=== PATIENT | female | born 1995 | race Two or more races ===

== ENCOUNTER → 2016-07-20 | Outpatient (CLI) | payer MEDICAID ==
[2016-07-20 12:29] LABS: Basophils # (auto) 0 uL; Basophils % (auto) 0.3 % (0.0-2.0); Eosinophils # (auto) 0.1 uL; Eosinophils % (auto) 1.3 % (0.0-7.0); Hematocrit 41.6 % (36.0-46.0); Hemoglobin 13.6 g/dL (12.2-16.2); Lymphocytes # (auto) 1.7 uL; Lymphocytes % (auto) 22.3 % (10.0-50.0); Mean Corpuscular Hemoglobin 29.1 pg (28.0-32.0); Mean Corpuscular Hgb Conc. 32.7 g/dL (32.0-36.0); Mean Corpuscular Volume 89.1 fL (80.0-100.0); Mean Platelet Volume 7.7 fL (7.4-10.4); Monocytes # (auto) 0.4 uL; Monocytes % (auto) 4.7 % (0.0-12.0); Neutrophils # (auto) 5.4 uL; Neutrophils % (auto) 71.4 % (37.0-80.0); Platelet Count (auto) 296 10^3/uL (140-450); Red Cell Distribution Width 12.3 % (11.6-16.0); White Blood Cell 7.6 10^3/uL (4.4-10.8)
== END | disposition home or self-care (01) ==
LOC: LAB 10:54
PROVIDERS: ATTEND Obstetrics & Gynecology
DX: Z34.00 Encounter for supervision of normal first pregnancy, unspecified trimester (principal)
CPT/HCPCS: 36415; 84702; 85025; 86703; 86762; 86850; 86900; 86901; 87086; 87340; G0434

== ENCOUNTER 2017-01-11 10:00 | Observation (INO) | payer MEDICAID ==
[2017-01-11 10:54] LABS: Basophils # (auto) 0 uL; Basophils % (auto) 0.2 % (0.0-2.0); CONDITION Y; Eosinophils # (auto) 0.1 uL; Eosinophils % (auto) 0.8 % (0.0-7.0); Hematocrit 33.1 % (36.0-46.0); Hemoglobin 11.1 g/dL (12.2-16.2); Lymphocytes # (auto) 1.6 uL; Lymphocytes % (auto) 21.6 % (10.0-50.0); Mean Corpuscular Hemoglobin 28.2 pg (28.0-32.0); Mean Corpuscular Hgb Conc. 33.5 g/dL (32.0-36.0); Mean Corpuscular Volume 84.1 fL (80.0-100.0); Mean Platelet Volume 7.3 fL (7.4-10.4); Monocytes # (auto) 0.4 uL; Monocytes % (auto) 5.8 % (0.0-12.0); Neutrophils # (auto) 5.3 uL; Neutrophils % (auto) 71.6 % (37.0-80.0); Platelet Count (auto) 274 10^3/uL (140-450); Red Cell Distribution Width 14.3 % (11.6-16.0); White Blood Cell 7.4 10^3/uL (4.4-10.8)
[2017-01-11 10:59] LABS: Urine Bilirubin Negative (Negative); Urine Blood Negative /uL (Negative); Urine Color Yellow (Yellow); Urine Glucose Normal (Normal); Urine Ketone Negative (Negative); Urine Mucus FEW (None Seen); Urine Nitrite Negative (Negative); Urine RBC <1 /hpf (0 - 4); Urine Squamous Epithelial Cell FEW /hpf (<5); Urine Urobilinogen Normal (Negative); Urine pH 6.5 (5.0-8.0)
[2017-01-11 11:07] LABS: INR 0.92 (0.9-1.15); Partial Thromboplastin Time 27.6 sec (22.64-33.71)
[2017-01-11 11:15] LABS: Albumin 2.5 g/dL (3.4-5.0); BUN/Creatinine Ratio 21.6; Bilirubin, Total 0.2 mg/dL (0.2-1.0); Calcium 8.6 mg/dL (8.5-10.1); Total Protein 6.7 g/dL (6.4-8.2); Uric Acid 5.2 mg/dL (2.6-6.0)
[2017-01-11] MEDS ORDERED: BETAMETHASONE ACET (6MG/ML) 5ML VIAL ONE (11:37)
[2017-01-11] MEDS ORDERED: BETAMETHASONE ACET (6MG/ML) 5ML VIAL IM ONE (11:45)
== END 2017-01-11 12:10 | disposition home or self-care (01) | DRG 566 ==
LOC: LDRP 10:00
PROVIDERS: ADMIT Obstetrics & Gynecology; ATTEND Obstetrics & Gynecology
DX: O13.3 Gestational [pregnancy-induced] hypertension without significant proteinuria, third trimester (principal); Z3A.36 36 weeks gestation of pregnancy
CPT/HCPCS: 36415; 59025; 76818; 80053; 81001; 81002; 84550; 85025; 85610; 85730; G0378; J0702

== ENCOUNTER 2017-01-12 12:05 | Observation (INO) | payer MEDICAID ==
[~2017-01-12] VITALS: Ht 162.6 cm; Wt 89.8 kg
[2017-01-12] MEDS ORDERED: BETAMETHASONE ACET (6MG/ML) 5ML VIAL IM ONE (12:45)
[2017-01-12] MEDS ORDERED: LACTATED RINGER'S 1,000 ML IV ONE (13:18)
[2017-01-12] MEDS ORDERED: TERBUTALINE SULFATE 1 MG/ML 1ML VIAL SC ONE (13:30)
== END 2017-01-12 15:00 | disposition home or self-care (01) | DRG 566 ==
LOC: LDRP 12:05
PROVIDERS: ADMIT Specialist; ATTEND Specialist
DX: O13.3 Gestational [pregnancy-induced] hypertension without significant proteinuria, third trimester (principal); Z3A.36 36 weeks gestation of pregnancy
CPT/HCPCS: 59025; 81002; 96361; 96366; 96372; G0378; J3105; 96360

== ENCOUNTER 2017-01-14 10:40 | Observation (INO) | payer MEDICAID ==
[2017-01-14 11:41] LABS: Basophils # (auto) 0 uL; Basophils % (auto) 0.3 % (0.0-2.0); CONDITION Y; Eosinophils # (auto) 0 uL; Eosinophils % (auto) 0.5 % (0.0-7.0); Hematocrit 30.8 % (36.0-46.0); Hemoglobin 10.3 g/dL (12.2-16.2); Lymphocytes # (auto) 1.8 uL; Mean Corpuscular Hemoglobin 28.2 pg (28.0-32.0); Mean Corpuscular Hgb Conc. 33.4 g/dL (32.0-36.0); Mean Corpuscular Volume 84.5 fL (80.0-100.0); Mean Platelet Volume 7.2 fL (7.4-10.4); Monocytes # (auto) 0.8 uL; Monocytes % (auto) 8.6 % (0.0-12.0); Neutrophils # (auto) 6.1 uL; Neutrophils % (auto) 69.6 % (37.0-80.0); Platelet Count (auto) 298 10^3/uL (140-450); Red Cell Distribution Width 14.1 % (11.6-16.0); White Blood Cell 8.8 10^3/uL (4.4-10.8)
[2017-01-14 11:55] LABS: INR 0.91 (0.9-1.15); Partial Thromboplastin Time 25.4 sec (22.64-33.71); Prothrombin Time 9.9 sec (9.37-12.3)
[2017-01-14 11:59] LABS: Potassium 3.7 mmol/L (3.5-5.1)
[2017-01-14 12:11] LABS: Albumin 2.5 g/dL (3.4-5.0); BUN/Creatinine Ratio 22.6
[2017-01-14 12:13] LABS: Bilirubin, Total 0.2 mg/dL (0.2-1.0); Total Protein 6.2 g/dL (6.4-8.2)
[2017-01-17 15:31] LABS: Uric Acid 4.9 mg/dL (2.6-6.0)
== END 2017-01-14 13:15 | disposition home or self-care (01) | DRG 566 ==
LOC: LDRP 10:40
PROVIDERS: ADMIT Specialist; ATTEND Specialist
DX: O13.3 Gestational [pregnancy-induced] hypertension without significant proteinuria, third trimester (principal); Z3A.36 36 weeks gestation of pregnancy
CPT/HCPCS: 36415; 59025; 76818; 80053; 81002; 84156; 84550; 85025; 85610; 85730; G0378

== ENCOUNTER 2017-01-16 09:30 | Observation (INO) | payer MEDICAID ==
[2017-01-16 11:22] LABS: Basophils # (auto) 0 uL; Basophils % (auto) 0.1 % (0.0-2.0); CONDITION Y; Eosinophils # (auto) 0.1 uL; Eosinophils % (auto) 0.9 % (0.0-7.0); Hematocrit 32.7 % (36.0-46.0); Lymphocytes # (auto) 1.6 uL; Lymphocytes % (auto) 23.9 % (10.0-50.0); Mean Corpuscular Hemoglobin 28.1 pg (28.0-32.0); Mean Corpuscular Hgb Conc. 33.7 g/dL (32.0-36.0); Mean Corpuscular Volume 83.6 fL (80.0-100.0); Mean Platelet Volume 7.4 fL (7.4-10.4); Monocytes # (auto) 0.3 uL; Monocytes % (auto) 4.7 % (0.0-12.0); Neutrophils # (auto) 4.8 uL; Neutrophils % (auto) 70.4 % (37.0-80.0); Platelet Count (auto) 279 10^3/uL (140-450); Red Cell Distribution Width 13.9 % (11.6-16.0); White Blood Cell 6.8 10^3/uL (4.4-10.8)
[2017-01-16 11:30] LABS: INR 0.92 (0.9-1.15); Partial Thromboplastin Time 26.7 sec (22.64-33.71)
[2017-01-16 11:35] LABS: Albumin 2.4 g/dL (3.4-5.0); Calcium 8.5 mg/dL (8.5-10.1); Potassium 3.6 mmol/L (3.5-5.1)
[2017-01-16 11:38] LABS: BUN/Creatinine Ratio 24.1
[2017-01-16 11:40] LABS: Bilirubin, Total 0.2 mg/dL (0.2-1.0); Total Protein 6.2 g/dL (6.4-8.2)
[2017-01-16 11:51] LABS: Urine Bilirubin Negative (Negative); Urine Blood Negative /uL (Negative); Urine Color Yellow (Yellow); Urine Glucose Normal (Normal); Urine Ketone Negative (Negative); Urine Nitrite Negative (Negative); Urine RBC 3 /hpf (0 - 4); Urine Squamous Epithelial Cell MOD /hpf (<5); Urine Urobilinogen Normal (Negative); Urine pH 7.5 (5.0-8.0)
[2017-01-17 15:42] LABS: Uric Acid 4.8 mg/dL (2.6-6.0)
== END 2017-01-16 13:00 | disposition home or self-care (01) | DRG 566 ==
LOC: LDRP 09:30
PROVIDERS: ADMIT Specialist; ATTEND Specialist
DX: O13.3 Gestational [pregnancy-induced] hypertension without significant proteinuria, third trimester (principal); Z3A.37 37 weeks gestation of pregnancy
CPT/HCPCS: 36415; 59025; 76818; 80053; 81001; 81002; 84550; 85025; 85610; 85730; G0378

== ENCOUNTER 2017-01-20 15:05 | Observation (INO) | payer MEDICAID ==
[2017-01-20 18:08] LABS: Basophils # (auto) 0 uL; CONDITION Y; Eosinophils # (auto) 0.1 uL; Eosinophils % (auto) 0.8 % (0.0-7.0); Hematocrit 32.5 % (36.0-46.0); Lymphocytes # (auto) 1.8 uL; Lymphocytes % (auto) 23.8 % (10.0-50.0); Mean Corpuscular Hgb Conc. 33.9 g/dL (32.0-36.0); Mean Corpuscular Volume 82.6 fL (80.0-100.0); Mean Platelet Volume 7.8 fL (7.4-10.4); Monocytes # (auto) 0.5 uL; Monocytes % (auto) 6.8 % (0.0-12.0); Neutrophils # (auto) 5.2 uL; Neutrophils % (auto) 68.6 % (37.0-80.0); Platelet Count (auto) 278 10^3/uL (140-450); Red Cell Distribution Width 14.4 % (11.6-16.0); White Blood Cell 7.6 10^3/uL (4.4-10.8)
[2017-01-20 18:11] LABS: Urine Bilirubin Negative (Negative); Urine Blood Negative /uL (Negative); Urine Ca Oxalate Crystal FEW (None Seen); Urine Color Yellow (Yellow); Urine Glucose Normal (Normal); Urine Ketone Negative (Negative); Urine Mucus FEW (None Seen); Urine Nitrite Negative (Negative); Urine RBC 1 /hpf (0 - 4); Urine Sperm PRESENT /hpf (None Seen); Urine Squamous Epithelial Cell MOD /hpf (<5); Urine Urobilinogen Normal (Negative)
[2017-01-20 18:22] LABS: INR 0.92 (0.9-1.15); Partial Thromboplastin Time 27.4 sec (22.64-33.71)
[2017-01-20 18:29] LABS: Albumin 2.5 g/dL (3.4-5.0); Bilirubin, Total 0.2 mg/dL (0.2-1.0); Calcium 8.7 mg/dL (8.5-10.1); Total Protein 6.6 g/dL (6.4-8.2); Uric Acid 5.4 mg/dL (2.6-6.0)
== END 2017-01-20 18:50 | disposition home or self-care (01) | DRG 566 ==
LOC: LDRP 15:05
PROVIDERS: ADMIT Obstetrics & Gynecology; ATTEND Obstetrics & Gynecology
DX: O26.893 Other specified pregnancy related conditions, third trimester (principal); Z3A.37 37 weeks gestation of pregnancy
CPT/HCPCS: 36415; 59025; 76818; 80053; 81001; 81002; 84550; 85025; 85610; 85730; G0378

== ENCOUNTER 2017-01-23 11:30 | Inpatient (IN) | payer MEDICAID ==
[~2017-01-23] VITALS: Ht 1 cm; Wt 0.5 kg
[2017-01-23] MEDS ORDERED: NALBUPHINE HCL 10 MG/1ml INJECTION IV PRN (12:45)
[2017-01-23] MEDS ORDERED: LACTATED RINGER'S 1,000 ML IV SCH (12:45)
[2017-01-23] MEDS ORDERED: CARBOPROST TROMETHAMINE 250 MCG/1ML VIAL IM PRN (12:45)
[2017-01-23] MEDS ORDERED: DERMOPLAST 60ML BOTTLE TOP PRN (12:45)
[2017-01-23] MEDS ORDERED: LACT. RINGERS/OXYTOCIN 20UNITS 1,000 ML IV SCH ×2 (12:45→16:51)
[2017-01-23] MEDS ORDERED: PHISODERM TOP SOLN 240ML BTL TOP PRN (12:45)
[2017-01-23] MEDS ORDERED: LIDOCAINE 2%HCL (LOCAL ANESTH.) INJ 20ML MDV IJ ONE (12:45)
[2017-01-23] MEDS ORDERED: METHYLERGONOVINE MALEATE 0.2 MG/ML AMP IM PRN (12:45)
[2017-01-23] MEDS ORDERED: WITCH HAZEL-GLYCERIN PAD TOP PRN (12:45)
[2017-01-23 13:21] LABS: Urine Bilirubin Negative (Negative); Urine Blood Negative /uL (Negative); Urine Color Yellow (Yellow); Urine Glucose Normal (Normal); Urine Ketone Negative (Negative); Urine Mucus FEW (None Seen); Urine Nitrite Negative (Negative); Urine RBC 2 /hpf (0 - 4); Urine Squamous Epithelial Cell FEW /hpf (<5); Urine Urobilinogen Normal (Negative)
[2017-01-23 13:24] LABS: Basophils # (auto) 0 uL; Basophils % (auto) 0.2 % (0.0-2.0); CONDITION Y; Eosinophils # (auto) 0 uL; Eosinophils % (auto) 0.4 % (0.0-7.0); Hematocrit 33.9 % (36.0-46.0); Hemoglobin 11.4 g/dL (12.2-16.2); Lymphocytes # (auto) 1.6 uL; Lymphocytes % (auto) 19.1 % (10.0-50.0); Mean Corpuscular Hemoglobin 27.9 pg (28.0-32.0); Mean Corpuscular Hgb Conc. 33.8 g/dL (32.0-36.0); Mean Corpuscular Volume 82.5 fL (80.0-100.0); Mean Platelet Volume 7.7 fL (7.4-10.4); Monocytes # (auto) 0.4 uL; Monocytes % (auto) 5.2 % (0.0-12.0); Neutrophils # (auto) 6.2 uL; Neutrophils % (auto) 75.1 % (37.0-80.0); Platelet Count (auto) 271 10^3/uL (140-450); Red Cell Distribution Width 14.7 % (11.6-16.0); White Blood Cell 8.2 10^3/uL (4.4-10.8)
[2017-01-23 13:43] LABS: INR 0.91 (0.9-1.15); Partial Thromboplastin Time 28.8 sec (22.64-33.71); Prothrombin Time 9.9 sec (9.37-12.3)
[2017-01-23 13:46] LABS: Albumin 2.6 g/dL (3.4-5.0); BUN/Creatinine Ratio 17.2; Bilirubin, Total 0.3 mg/dL (0.2-1.0); Calcium 8.7 mg/dL (8.5-10.1); Potassium 4.1 mmol/L (3.5-5.1); Total Protein 6.9 g/dL (6.4-8.2)
[2017-01-23] MEDS ORDERED: TERBUTALINE SULFATE 1 MG/ML 1ML VIAL SC PRN (17:00)
[2017-01-23] MEDS ORDERED: PREN-96 PO (17:06)
[2017-01-23] MEDS ORDERED: ACETAMINOPHEN 325 MG TAB PO PRN (22:15)
[2017-01-23] MEDS: IBUPROFEN 600 MG TAB PO PRN (22:17)
[2017-01-24 04:30] VITALS: BP 120/69
[2017-01-24 07:40] VITALS: BP 117/73
[2017-01-24 11:55] VITALS: BP 127/60
[2017-01-24 15:50] VITALS: BP 118/66
[2017-01-24 18:56] VITALS: BP 130/80
[2017-01-24] MEDS: IBUPROFEN 600 MG TAB PO PRN (19:03)
[2017-01-24 22:45] VITALS: BP 126/70
[2017-01-25 03:00] VITALS: BP 106/65
[2017-01-25 07:59] VITALS: BP 122/82
[2017-01-25] MEDS ORDERED: DOCUSATE CALCIUM 240 MG CAP PO ONE (10:15)
== END 2017-01-25 11:00 | disposition home or self-care (01) | DRG 560 ==
LOC: LDRP 11:30 → OBSVTOIN 11:30 → LDRP 01-24 14:30
PROVIDERS: ADMIT Specialist; ATTEND Specialist
PROC: 10E0XZZ Delivery of Products of Conception, External Approach (ICD-10-PCS; principal; 2017-01-23)
DX: O13.4 Gestational [pregnancy-induced] hypertension without significant proteinuria, complicating childbirth (principal); O42.02 Full-term premature rupture of membranes, onset of labor within 24 hours of rupture; Z37.0 Single live birth; Z3A.38 38 weeks gestation of pregnancy
CPT/HCPCS: 36415; 59409; 80053; 80307; 81001; 81002; 84550; 85025; 85610; 85730; 86850; 86900; 86901; 88307; 96361; 96365; 96366; J2590

== ENCOUNTER 2019-03-03 11:17 | Observation (INO) | payer MEDICAID ==
[~2019-03-03 11:17] MED LIST: PREN-96 PO
== END 2019-03-03 13:00 | disposition home or self-care (01) | DRG 566 ==
LOC: LDRP 11:17
PROVIDERS: ADMIT Specialist; ATTEND Specialist
DX: O41.8X90 Other specified disorders of amniotic fluid and membranes, unspecified trimester, not applicable or unspecified (principal); Z3A.36 36 weeks gestation of pregnancy
CPT/HCPCS: 59025; 76818; 81002; G0378

== ENCOUNTER 2019-03-06 12:15 | Observation (INO) | payer MEDICAID ==
[2019-03-06 13:33] LABS: Basophils # (auto) 0 uL; Basophils % (auto) 0.6 % (0.0-2.0); Eosinophils # (auto) 0.1 uL; Eosinophils % (auto) 1.2 % (0.0-7.0); Hematocrit 36.3 % (36.0-46.0); Hemoglobin 12.6 g/dL (12.2-16.2); Lymphocytes # (auto) 1.6 uL; Mean Corpuscular Hemoglobin 29.5 pg (28.0-32.0); Mean Corpuscular Hgb Conc. 34.7 g/dL (32.0-36.0); Mean Corpuscular Volume 85.1 fL (80.0-100.0); Monocytes # (auto) 0.4 uL; Monocytes % (auto) 5.9 % (0.0-12.0); Neutrophils # (auto) 4.9 uL; Neutrophils % (auto) 69.3 % (37.0-80.0); Nucleated Red Blood Cells % 0.2 %; Platelet Count (auto) 234 10^3/uL (140-450); Red Blood Cells 4.27 10^6/uL (4.0-5.20); Red Cell Distribution Width 13.5 % (11.8-14.3)
[2019-03-06 13:45] LABS: Albumin 2.5 g/dL (3.4-5.0); Calcium 8.5 mg/dL (8.5-10.1); Uric Acid 5.8 mg/dL (2.6-6.0)
[2019-03-06 13:47] LABS: BUN/Creatinine Ratio 17.5; Bilirubin, Total 0.3 mg/dL (0.2-1.0); Total Protein 6.8 g/dL (6.4-8.2)
[2019-03-06 13:48] LABS: Urine Bacteria FEW /hpf (None Seen); Urine Blood Negative /uL (Negative); Urine Mucus FEW (None Seen); Urine Specific Gravity 1.024 (1.001-1.035); Urine WBC 26 /hpf (0 - 5)
[2019-03-06 13:57] LABS: INR < 0.93 (0.9-1.15); Partial Thromboplastin Time 27.2 sec (23.64-32.05)
== END 2019-03-06 15:00 | disposition home or self-care (01) | DRG 566 ==
LOC: LDRP 12:15
PROVIDERS: ADMIT Obstetrics & Gynecology; ATTEND Obstetrics & Gynecology
DX: O26.893 Other specified pregnancy related conditions, third trimester (principal); R51 Headache; Z3A.37 37 weeks gestation of pregnancy
CPT/HCPCS: 36415; 59025; 80053; 81001; 81002; 84550; 85025; 85610; 85730; G0378

== ENCOUNTER 2019-03-11 11:38 | Observation (INO) | payer MEDICAID ==
[2019-03-11 14:13] LABS: Protein, Urine 37.4 mg/dL (0.0-11.9)
[2019-03-11 14:14] LABS: 24 Hr. Total Protein, Urine 504.9 mg/24 Hr (<149.1)
== END 2019-03-11 14:55 | disposition home or self-care (01) | DRG 566 ==
LOC: LDRP 11:38
PROVIDERS: ADMIT Specialist; ATTEND Specialist
DX: O13.3 Gestational [pregnancy-induced] hypertension without significant proteinuria, third trimester (principal); Z3A.38 38 weeks gestation of pregnancy
CPT/HCPCS: 59025; 76818; 81002; 84156; G0378

== ENCOUNTER 2019-03-14 10:30 | Observation (INO) | payer MEDICAID ==
[2019-03-14 11:46] LABS: Basophils # (auto) 0 uL; Basophils % (auto) 0.2 % (0.0-2.0); Eosinophils # (auto) 0 uL; Eosinophils % (auto) 0.5 % (0.0-7.0); Hematocrit 37.5 % (36.0-46.0); Hemoglobin 12.9 g/dL (12.2-16.2); Lymphocytes # (auto) 1.3 uL; Lymphocytes % (auto) 19.3 % (10.0-50.0); Mean Corpuscular Hemoglobin 30.1 pg (28.0-32.0); Mean Corpuscular Hgb Conc. 34.5 g/dL (32.0-36.0); Mean Corpuscular Volume 87.1 fL (80.0-100.0); Monocytes # (auto) 0.4 uL; Monocytes % (auto) 5.8 % (0.0-12.0); Neutrophils # (auto) 5.2 uL; Neutrophils % (auto) 74.2 % (37.0-80.0); Nucleated Red Blood Cells % 0.1 %; Platelet Count (auto) 237 10^3/uL (140-450); Red Cell Distribution Width 13.8 % (11.8-14.3)
[2019-03-14 12:06] LABS: Albumin 2.7 g/dL (3.4-5.0); BUN/Creatinine Ratio 15.7; Calcium 7.7 mg/dL (8.5-10.1); Potassium 3.9 mmol/L (3.5-5.1); Uric Acid 5.6 mg/dL (2.6-6.0)
[2019-03-14 12:09] LABS: Bilirubin, Total 0.3 mg/dL (0.2-1.0); Total Protein 7.3 g/dL (6.4-8.2)
[2019-03-14 12:28] LABS: Urine Bacteria FEW /hpf (None Seen); Urine Blood 2+ /uL (Negative); Urine Mucus FEW (None Seen); Urine Specific Gravity 1.035 (1.001-1.035); Urine WBC 91 /hpf (0 - 5)
== END 2019-03-14 12:39 | disposition home or self-care (01) | DRG 566 ==
LOC: LDRP 10:30
PROVIDERS: ADMIT Obstetrics & Gynecology; ATTEND Obstetrics & Gynecology
DX: O13.3 Gestational [pregnancy-induced] hypertension without significant proteinuria, third trimester (principal); O26.893 Other specified pregnancy related conditions, third trimester; N89.8 Other specified noninflammatory disorders of vagina; Z3A.38 38 weeks gestation of pregnancy
CPT/HCPCS: 36415; 59025; 80053; 81001; 81002; 84550; 85025; G0378

== ENCOUNTER 2019-03-15 02:47 | Inpatient (IN) | payer MEDICAID ==
[~2019-03-15] VITALS: Ht 162.6 cm; Wt 92.5 kg
[2019-03-15] MEDS ORDERED: LACTATED RINGER'S 1,000 ML IV SCH (03:21)
[2019-03-15] MEDS ORDERED: LACT. RINGERS/OXYTOCIN 20UNITS 1,000 ML IV SCH (03:21)
[2019-03-15] MEDS ORDERED: NALBUPHINE HCL 10 MG/1ml INJECTION IV PRN (03:30)
[2019-03-15] MEDS ORDERED: CARBOPROST TROMETHAMINE 250 MCG/1ML VIAL IM PRN (03:30)
[2019-03-15] MEDS ORDERED: LIDOCAINE 2%HCL (LOCAL ANESTH.) INJ 20ML MDV ID ONE (03:30)
[2019-03-15] MEDS ORDERED: METHYLERGONOVINE MALEATE 0.2 MG/ML AMP IM PRN (03:30)
[2019-03-15 04:07] LABS: Basophils # (auto) 0 uL; Basophils % (auto) 0.3 % (0.0-2.0); Eosinophils # (auto) 0.1 uL; Eosinophils % (auto) 1.1 % (0.0-7.0); Hematocrit 38.2 % (36.0-46.0); Mean Corpuscular Hemoglobin 29.4 pg (28.0-32.0); Mean Corpuscular Volume 86.7 fL (80.0-100.0); Monocytes # (auto) 0.4 uL; Monocytes % (auto) 6.2 % (0.0-12.0); Neutrophils # (auto) 4.7 uL; Neutrophils % (auto) 65.4 % (37.0-80.0); Platelet Count (auto) 249 10^3/uL (140-450); Red Cell Distribution Width 13.6 % (11.8-14.3); White Blood Cell 7.2 10^3/uL (4.4-10.8)
[2019-03-15 04:21] LABS: INR 0.94 (0.9-1.15); Partial Thromboplastin Time 27.6 sec (23.64-32.05)
[2019-03-15 04:26] LABS: BUN/Creatinine Ratio 16.4; Calcium 8.3 mg/dL (8.5-10.1); Potassium 3.7 mmol/L (3.5-5.1)
[2019-03-15 05:06] LABS: Albumin 2.6 g/dL (3.4-5.0); Bilirubin, Total 0.3 mg/dL (0.2-1.0); Total Protein 6.9 g/dL (6.4-8.2)
[2019-03-15 07:15] VITALS: BP 131/66
[2019-03-15] MEDS ORDERED: WITCH HAZEL-GLYCERIN PAD TOP ONE (07:19)
[2019-03-15] MEDS ORDERED: DERMOPLAST 60ML BOTTLE TOP ONE (07:19)
[2019-03-15] MEDS ORDERED: PHISODERM TOP SOLN 240ML BTL TOP ONE (07:19)
--- NOTE | 2019-03-15 07:20 | NUR ---
Ambulation: Patient OOB with standby assistance by RN. Patient ambulated to bathroom with steady gait. Patient able to void 500ml without difficulty. [facility]icare teaching provided with returned demonstration by patient. Clean gown provided and bed linen changed. Patient ambulated back to bed with steady gait and no distress noted.
[2019-03-15] MEDS ORDERED: ACETAMINOPHEN 325 MG TAB PO PRN (07:30)
[2019-03-15] MEDS ORDERED: DERMOPLAST 60ML BOTTLE TOP PRN (07:30)
[2019-03-15] MEDS ORDERED: WITCH HAZEL-GLYCERIN PAD TOP PRN (07:30)
[2019-03-15] MEDS ORDERED: PHISODERM TOP SOLN 240ML BTL TOP PRN (07:30)
[2019-03-15 07:38] VITALS: BP 124/59
[2019-03-15 11:00] VITALS: BP 111/65
[2019-03-15] MEDS: IBUPROFEN 600 MG TAB PO PRN (13:10)
[2019-03-15 15:14] VITALS: BP 111/58
[2019-03-15 19:00] VITALS: BP 101/57
[2019-03-15 23:00] VITALS: BP 100/66
[2019-03-16 03:00] VITALS: BP 103/56
[2019-03-16 05:07] LABS: RPR Non Reactive (Non Reactive)
[2019-03-16] MEDS: IBUPROFEN 600 MG TAB PO PRN (05:49)
[2019-03-16 07:09] VITALS: BP 98/57
[2019-03-16 11:10] VITALS: BP 127/65
--- NOTE | 2019-03-16 12:31 | NUR ---
Discharge: Discharge instructions given as ordered. Pt encouraged to follow up with [facility] as instructed. All questions and concerns addressed. Patient verbalized understanding. Medication reconciliation completed and copy given to patient. Patient encouraged to prepare to depart unit.
--- NOTE | 2019-03-16 13:00 | NUR ---
Discharge: Patient taken to vehicle ambulatory via steady gait, pt declined wheelchair with all personal belongings, accompanied by staff and family member. No distress noted at time of departure, no adverse changes in status since initial assessment.
== END 2019-03-16 13:00 | disposition home or self-care (01) | DRG 560 ==
LOC: OBSVTOIN 02:47 → LDRP 02:47
PROVIDERS: ADMIT Obstetrics & Gynecology; ATTEND Obstetrics & Gynecology
PROC: 10E0XZZ Delivery of Products of Conception, External Approach (ICD-10-PCS; principal; 2019-03-15)
DX: O69.81X0 Labor and delivery complicated by cord around neck, without compression, not applicable or unspecified (principal); Z37.0 Single live birth; Z3A.38 38 weeks gestation of pregnancy
CPT/HCPCS: 36415; 59025; 59409; 80053; 81002; 84112; 85025; 85610; 85730; 86592; 86850; 86900; 86901; 96365; 96366; 96372; G0378; J2590

== ENCOUNTER 2023-06-02 11:15 | Observation (INO) | payer MEDICAID | END 2023-06-02 13:18 | disposition home or self-care (01) | LOC: LDRP 11:15 → UNDOADMOB 11:15 → LDRP 11:25 → UNDODISOB 13:18 | PROVIDERS: ADMIT Obstetrics & Gynecology; ATTEND Obstetrics & Gynecology | DX: O24.419 Gestational diabetes mellitus in pregnancy, unspecified control (principal); Z3A.36 36 weeks gestation of pregnancy; Z91.040 Latex allergy status | CPT/HCPCS: 59025; 76818; 81002; 82948; 82962; 94760; G0378 ==

== ENCOUNTER 2023-06-05 09:07 | Observation (INO) | payer MEDICAID | END 2023-06-05 11:08 | disposition home or self-care (01) | LOC: LDRP 09:07 | PROVIDERS: ADMIT Obstetrics & Gynecology; ATTEND Obstetrics & Gynecology | DX: O24.419 Gestational diabetes mellitus in pregnancy, unspecified control (principal); O32.1XX0 Maternal care for breech presentation, not applicable or unspecified; Z3A.36 36 weeks gestation of pregnancy; Z91.040 Latex allergy status | CPT/HCPCS: 59025; 76818; 81002; G0378 ==

== ENCOUNTER 2023-06-08 12:08 | Observation (INO) | payer MEDICAID | END 2023-06-08 13:50 | disposition home or self-care (01) | LOC: LDRP 12:08 → UNDOADMOB 12:08 → LDRP 12:17 → UNDODISOB 13:50 | PROVIDERS: ADMIT Obstetrics & Gynecology; ATTEND Obstetrics & Gynecology | DX: O24.419 Gestational diabetes mellitus in pregnancy, unspecified control (principal); Z3A.37 37 weeks gestation of pregnancy; Z91.040 Latex allergy status | CPT/HCPCS: 59025; 76818; 81002; 82948; 82962; G0378 ==

== ENCOUNTER 2023-06-15 08:23 | Observation (INO) | payer MEDICAID | END 2023-06-15 09:42 | disposition home or self-care (01) | LOC: LDRP 08:23 → UNDOADMOB 08:23 → LDRP 08:25 → UNDODISOB 09:42 | PROVIDERS: ADMIT Obstetrics & Gynecology; ATTEND Obstetrics & Gynecology | DX: O24.419 Gestational diabetes mellitus in pregnancy, unspecified control (principal); Z3A.38 38 weeks gestation of pregnancy; Z91.040 Latex allergy status | CPT/HCPCS: 59025; 76818; 81002; 82948; 82962; 94760; G0378 ==

== ENCOUNTER 2023-06-19 09:08 | Observation (INO) | payer MEDICAID | END 2023-06-22 23:10 | disposition home or self-care (01) | LOC: LDRP 06-22 21:12 | PROVIDERS: ADMIT Obstetrics & Gynecology; ATTEND Obstetrics & Gynecology | DX: O24.419 Gestational diabetes mellitus in pregnancy, unspecified control (principal); O62.9 Abnormality of forces of labor, unspecified; Z3A.39 39 weeks gestation of pregnancy; Z91.040 Latex allergy status | CPT/HCPCS: 59025; 76818; 81002; 82948; 82962; 94760; G0378 ==

== ENCOUNTER 2023-06-23 06:14 | Inpatient (IN) | payer MEDICAID ==
[~2023-06-23] VITALS: Ht 162.6 cm; Wt 97.5 kg
[2023-06-23] MEDS ORDERED: BUTORPHANOL TARTRATE 2 MG/1 ML VIAL IV PRN ×2 (06:45)
[2023-06-23] MEDS ORDERED: LACT. RINGERS/OXYTOCIN 20UNITS 500 ML IV ONE ×2 (06:45→07:15)
[2023-06-23] MEDS ORDERED: LIDOCAINE 2%HCL (LOCAL ANESTH.) INJ 20ML MDV IJ PRN (06:45)
[2023-06-23] MEDS ORDERED: PROMETHAZINE HCL 25 MG/ML 1ML IV PRN (06:45)
[2023-06-23] MEDS ORDERED: DERMOPLAST 60ML BOTTLE TOP PRN (06:45)
[2023-06-23] MEDS ORDERED: LACTATED RINGER'S 1,000 ML IV SCH (06:45)
[2023-06-23] MEDS ORDERED: PENICILLIN G POT 5MIL/D5 50ML 50 ML IV ONE ×3 (06:45→06:57)
[2023-06-23] MEDS ORDERED: LACT. RINGERS/OXYTOCIN 20UNITS 1,000 ML IV SCH (06:45)
[2023-06-23] MEDS ORDERED: WITCH HAZEL-GLYCERIN PAD TOP PRN (06:45)
[2023-06-23] MEDS ORDERED: PHISODERM TOP SOLN 240ML BTL TOP PRN (06:45)
[2023-06-23 07:21] LABS: Basophils # (auto) 0 10 ^3/uL (0-0.2); Basophils % (auto) 0.2 % (0.0-2.0); Eosinophils # (auto) 0 10 ^3/uL (0-0.8); Eosinophils % (auto) 0.1 % (0.0-7.0); Hematocrit 36.6 % (36.0-46.0); Lymphocytes # (auto) 1.3 10 ^3/uL (0.4-5.4); Lymphocytes % (auto) 9.5 % (10.0-50.0); Mean Corpuscular Hemoglobin 28.1 pg (28.0-32.0); Mean Corpuscular Hgb Conc. 32.9 g/dL (32.0-36.0); Mean Corpuscular Volume 85.6 fL (80.0-100.0); Monocytes # (auto) 0.5 10 ^3/uL (0-1.3); Monocytes % (auto) 3.9 % (0.0-12.0); Neutrophils # (auto) 11.7 10 ^3/uL (1.6-8.6); Neutrophils % (auto) 86.3 % (37.0-80.0); Nucleated Red Blood Cells % 0.1 %; Red Blood Cells 4.28 10^6/uL (4.0-5.20); White Blood Cell 13.5 10^3/uL (4.4-10.8)
[2023-06-23 07:38] LABS: Alanine Aminotransferase 12 U/L (7-40); Albumin 3.8 g/dL (3.2-4.8); Alkaline Phosphatase 231 U/L (46-116); Anion Gap 10 (5-15); Aspartate Aminotransferase 19 U/L (13-40); BUN/Creatinine Ratio 9.9 (10.0-20.0); Bilirubin, Total 0.5 mg/dL (0.2-1.0); Blood Urea Nitrogen 7 mg/dL (9-23); Calcium 9.2 mg/dL (8.5-10.1); Carbon Dioxide 21 mmol/L (20-30); Chloride 103 mmol/L (98-107); Glucose 115 mg/dL (74-106); Sodium 134 mmol/L (136-145); Total Protein 6.9 g/dL (5.7-8.2)
[2023-06-23 07:51] LABS: INR 0.98 (0.9-1.15); Partial Thromboplastin Time 29.9 SEC (24.5-34.5); Prothrombin Time 10.3 sec (9.3-11.8)
[2023-06-23 08:06] LABS: Urine Bacteria NONE SEEN /hpf (None Seen); Urine Blood 3+ /uL (Negative); Urine Clarity HAZY (Clear); Urine Color Yellow (Yellow); Urine Mucus FEW (None Seen); Urine Protein, UAD 1+ (Negative); Urine Specific Gravity 1.026 (1.001-1.035); Urine WBC 12 /hpf (0 - 5); Urine pH 6.5 (5.0-8.0)
[2023-06-23 08:14] LABS: Amphetamine Screen, Urine Neg (NEGATIVE)
[2023-06-23 08:15] LABS: Barbiturate Scree,Urine Neg (NEGATIVE); Benzodiazephine Screen, Urine Neg (NEGATIVE); Cocaine Screen, Urine Neg (NEGATIVE)
[2023-06-23 08:16] LABS: Cannabinoid Screen, Urine Neg (NEGATIVE); Opiate Scree,Urine Neg (NEGATIVE); Phencyclidine Screen, Urine Neg (NEGATIVE)
[2023-06-23] MEDS ORDERED: IBUPROFEN 600 MG TAB PO PRN (10:00)
[2023-06-23] MEDS ORDERED: ACETAMINOPHEN 325 MG TAB PO PRN (10:00)
[2023-06-23] MEDS ORDERED: PENICILLIN G POTASSIUM 2,500,000 UNITS in D5W 5% 50 ML IV SCH (10:45)
[2023-06-23 11:23] VITALS: BP 132/74; PULSE 86; RESP 18; TEMP 97.9
[2023-06-23 11:25] VITALS: RESP 18; O2SAT 99
[2023-06-23 15:00] VITALS: BP 124/76; PULSE 99; RESP 18; TEMP 97.9; O2SAT 97
[2023-06-23 19:00] VITALS: BP 120/72; PULSE 79; RESP 18; RESP 20; TEMP 98.1; O2SAT 98; O2SAT 99
[2023-06-23 23:00] VITALS: BP 128/80; PULSE 81; RESP 16; TEMP 99; O2SAT 99
[2023-06-24] MEDS ORDERED: IBU600T PO (00:37)
[2023-06-24 03:00] VITALS: BP 118/73; PULSE 74; RESP 18; TEMP 99; O2SAT 100
[2023-06-24 07:00] VITALS: RESP 16; O2SAT 98
[2023-06-24 07:06] LABS: RPR Non Reactive (Non Reactive)
[2023-06-24 07:15] VITALS: BP 103/62; PULSE 78; RESP 18; TEMP 98; O2SAT 98
[2023-06-24 11:06] VITALS: BP 128/77; PULSE 80; RESP 20; TEMP 98.2; O2SAT 95
[2023-06-27 19:06] LABS: Treponema pallidum Ab (FTA-Ab) Non Reactive (Non Reactive)
== END 2023-06-24 13:38 | disposition home or self-care (01) | DRG 560 ==
LOC: LDRP 06:14 → OBSVTOIN 06:35 → LDRP 07:08
PROVIDERS: ADMIT Obstetrics & Gynecology; ATTEND Obstetrics & Gynecology
PROC: 10E0XZZ Delivery of Products of Conception, External Approach (ICD-10-PCS; principal; 2023-06-23)
DX: O62.3 Precipitate labor (principal); Z37.0 Single live birth; O24.429 Gestational diabetes mellitus in childbirth, unspecified control; O99.824 Streptococcus B carrier state complicating childbirth; Z3A.39 39 weeks gestation of pregnancy; O69.81X0 Labor and delivery complicated by cord around neck, without compression, not applicable or unspecified
CPT/HCPCS: 36415; 59025; 59409; 80053; 80307; 81001; 85025; 85610; 85730; 86592; 86850; 86900; 86901; 94760; 96360; 96361; G0378; J2540; J2590; J7060